=== PATIENT | male | born 1950 | race Caucasian/White ===

== ENCOUNTER 2019-05-29 15:00 | Emergency (ER) | payer BC, MEDICARE ==
[2019-05-29 15:25] VITALS: BP 130/47; PULSE 56
[2019-05-29] MEDS ORDERED: Ketorolac 60 MG/2 ML SDV IM ONE (15:44)
--- NOTE | 2019-05-29 15:45 | EDM.PDOC ---
ED HPI GENERAL MEDICAL PROBLEM - General Chief Complaint: Back Pain or Injury Stated Complaint: FELL AND HURT BACK Time Seen by Provider: 05/29/19 15:45 Source of Information: Reports: Patient History Limitations: Reports: No Limitations - History of Present Illness INITIAL COMMENTS - FREE TEXT/NARRATIVE: pt arrived after falling down the stairs at home. He did hit the rt post chest hard. Onset: Other ( this happened last nite. ) Duration: Hour(s): Location: Reports: Chest Associated Symptoms: Reports: Chest Pain, Other (hurts to take a deep breath. ) Right Middle Back Pain Score (Numeric/FACES): 10 - Related Data Allergies Allergy/AdvReac Type Severity Reaction Status Date / Time No Known Allergies Allergy Verified 05/29/19 15:31 Home Meds: Home Meds Aspirin [Adult Low Dose Aspirin EC] 81 mg PO DAILY 12/20/14 [History] Simvastatin [Zocor] 20 mg PO BEDTIME 12/20/14 [History] Sildenafil [Viagra] 100 mg PO ASDIRECTED PRN 05/29/19 [History] Past Medical History HEENT History: Reports: Impaired Vision Other HEENT History: ringing in ears Cardiovascular History: Reports: High Cholesterol Genitourinary History: Reports: Other (See Below) Other Genitourinary History: ED Musculoskeletal History: Reports: Arthritis, Back Pain, Chronic, Fracture, Neck Pain, Chronic Other Musculoskeletal History: arm leg Neurological History: Reports: None Psychiatric History: Reports: None Other Oncologic History: pre cancer skin cells - Infectious Disease History Infectious Disease History: Reports: Chicken Pox - Past Surgical History GI Surgical History: Reports: Colonoscopy, Hernia, Inguinal Oncologic Surgical History: Reports: Other (See Below) Other Oncologic Surgeries/Procedures: skin biopsy Social & Family History - Family History Family Medical History: Noncontributory - Tobacco Use Smoking Status *Q: Former Smoker Used Tobacco, but Quit: Yes Month/Year Tobacco Last Used: about 3 years ago - Caffeine Use Caffeine Use: Reports: Coffee - Recreational Drug Use Recreational Drug Use: No ED ROS GENERAL - Review of Systems Review Of Systems: See Below Constitutional: Reports: No Symptoms HEENT: Reports: No Symptoms Respiratory: Reports: No Symptoms, Pleuritic Chest Pain, Other (pt hurts in the rt post chest when he takes a deep breath. ) Cardiovascular: Reports: Other ( ) Endocrine: Reports: No Symptoms GI/Abdominal: Reports: No Symptoms : Reports: No Symptoms Musculoskeletal: Reports: No Symptoms ED EXAM, UPPER BACK/NECK PAIN - Physical Exam Exam: See Below Text/Narrative:: pt has pain when he takes a deep breath. He fell down the stairs and hit his post rt chest. He has not been real sob. Exam Limited By: No Limitations General Appearance: Alert, Anxious, Moderate Distress Ears Exam: Normal TMs Nose Exam: Normal Inspection Throat/Mouth Exam: Normal Inspection Head Exam: Atraumatic Neck Exam: Non-Tender Cardiovascular/Respiratory: Regular Rate, Rhythm, Other (pt is tender to palpate in the rt post chest area. He is splinting slightly on the rt post chest. ) GI/Abdominal: Soft, Non-Tender (Male) Exam: Deferred Rectal (Males) Exam: Deferred Back Exam: Normal Inspection Course - Vital Signs Last Recorded V/S: Last Vital Signs Temp 35.8 C L 05/29/19 15:30 Pulse 56 L 05/29/19 15:30 Resp 16 05/29/19 15:30 BP 130/47 L 05/29/19 15:30 Pulse Ox 96 05/29/19 15:30 - Orders/Labs/Meds Meds: Medications Discontinued Medications Generic Name Dose Route Start Last Admin Trade Name Freq PRN Reason Stop Dose Admin Ketorolac Tromethamine 60 mg 05/29/19 15:44 05/29/19 15:53 Toradol IM 05/29/19 15:45 60 mg ONETIME ONE Administration - Re-Assessments/Exams Free Text/Narrative Re-Assessment/Exam: 05/29/19 17:03 chest xray looked with no pneumothorax, A definite rib fracture was not seen but he would act like a fracture was present. Departure - Departure Time of Disposition: 16:55 Disposition: Home, Self-Care 01 Condition: Fair Clinical Impression: Contusion, chest wall - Discharge Information Instructions: Rib Contusion Referrals: Jony Jimenez MD [Primary Care Provider] - Forms: ED Department Discharge Care Plan Goals: cool pack, motrin 600mg tid with food, norco 5/325 q6h prn for pain # 10, make yourself deep breath. Sepsis Event Note - Evaluation Sepsis Screening Result: No Definite Risk - Focused Exam Date Exam was Performed: 05/31/19 Time Exam was Performed: 07:17
--- NOTE | 2019-05-30 09:54 | CR ---
Ribs 2V w Chest Rt CLINICAL HISTORY: Right rib pain FINDINGS: There is mild apical thickening bilaterally. There is an old healed the left the third rib fracture. No acute fracture or osseous lesion identified. There are no pleural effusions. There is no pneumothorax IMPRESSION: No acute rib fracture or osseous lesion
== END 2019-05-29 17:03 | disposition home or self-care (01) ==
LOC: JP.ED 15:00
DX: S20.211A Contusion of right front wall of thorax, initial encounter (principal); E78.00 Pure hypercholesterolemia, unspecified; M19.90 Unspecified osteoarthritis, unspecified site; Z79.82 Long term (current) use of aspirin; Z79.899 Other long term (current) drug therapy; Z87.891 Personal history of nicotine dependence; W10.9XXA Fall (on) (from) unspecified stairs and steps, initial encounter
CPT/HCPCS: 71101; 96372; 99283; J1885